=== PATIENT | female | born 1960 | race Caucasian/White ===

== ENCOUNTER → 2017-01-14 | Outpatient (CLI) | payer OTHER ==
[2014-12-27 15:40] VITALS: BP 134/78
[2017-01-14 08:00] LABS: BASOPHILS # (AUTO) 0.1 X10^3/uL (0.0-0.1); BASOPHILS % (AUTO) 0.9 % (0.2-1.0); EOSINOPHILS # (AUTO) 0.1 x10^3/uL (0.0-0.2); EOSINOPHILS % (AUTO) 1.6 % (0.9-2.9); HEMATOCRIT 43.3 % (36.0-47.0); HEMOGLOBIN 15.3 g/dL (12.0-16.0); LYMPHOCYTES # (AUTO) 2.7 X10^3/uL (1.3-2.9); LYMPHOCYTES % (AUTO) 33.6 % (21.0-51.0); MEAN CORPUSCULAR HEMOGLOBIN 32.8 pg (27.0-34.0); MEAN CORPUSCULAR HGB CONC 35.4 g/dL (33.0-35.0); MEAN CORPUSCULAR VOLUME 92.6 fL (80.0-100.0); MONOCYTES # (AUTO) 0.4 x10^3/uL (0.3-0.8); MONOCYTES % (AUTO) 5.1 % (0.0-13.0); NEUTROPHILS # (AUTO) 4.8 x10^3/uL (2.2-4.8); NEUTROPHILS % (AUTO) 58.8 % (42.0-75.0); PLATELET COUNT 279 X10^3/uL (150.0-450.0); RED BLOOD COUNT 4.67 X10^6/uL (3.5-5.4); RED CELL DISTRIBUTION WIDTH 12.5 % (11.6-16.5); WHITE BLOOD COUNT 8.1 X10^3/uL (3.6-10.0)
[2017-01-14 08:09] LABS: ALANINE AMINOTRANSFERASE 35 Units/L (12-78); ALBUMIN 4.1 g/dL (3.4-5.0); ALKALINE PHOSPHATASE 46 Units/L (46-116); ASPARTATE AMINO TRANSFERASE 15 Units/L (15-37); BLOOD UREA NITROGEN 10 mg/dL (7-18); CALCIUM 8.7 mg/dL (8.5-10.1); CARBON DIOXIDE 26.5 mmol/L (21-32); CHLORIDE 105 mmol/L (98-107); CHOL/HDL RATIO 8.2 (0.0-5.0); CHOLESTEROL 352 mg/dL (0-200); COR NA(FOR HYPERGLY) 141 mmol/L (136-145); CREATININE 0.53 mg/dL (0.55-1.02); GLUCOSE 117 mg/dL (65-99); HDL CHOLESTEROL 43 mg/dL (40-60); SODIUM 141 mmol/L (136-145); TOTAL PROTEIN 7.9 g/dL (6.4-8.2); TRIGLYCERIDES 444 mg/dL (0-150); eGFR BLACK RACES > 60 (>60); eGFR NON BLACK RACES > 60 (>60)
--- NOTE | 2017-01-14 10:06 | MRI ---
MRI of lumbar spine without contrast Indication: Lower back pain Comparison:None available Technique: Multiplanar multi-sequence MRI of the lumbar spine was obtained. Sagittal T1, sagittal T 2, and stir weighted images, axial T1, and axial T2 images were obtained. Findings: Lumbar spine demonstrates normal alignment without spondylolisthesis. There is no localizing bone ma rrow signal abnormality within the lumbar spine. There is no significant disc desiccation or disc sp yesika loss. Chronic wedge compression deformity of T12 is noted without marrow edema to suggest acute injury. No prevertebral or paraspinal soft tissue swelling or fluid collection. The conus has a norm al termination. Limited visualization of the abdomen and pelvis demonstrates no acute inflammatory process. At T12-L1: Unremarkable At L1-L2: Unremarkable At L2-3: Mild broad-based disc bulge causes mild spinal canal stenosis without neural foraminal narr owing. At L3-4: broad-based disc bulge with mild facet arthropathy causes moderate spinal canal stenosis wi th mild bilateral foraminal narrowing. At L4-5: broad-based disc bulge with mild facet arthropathy causes moderate spinal canal stenosis w ith moderate bilateral neural foraminal stenosis. There is moderate compression of bilateral lateral recesses and transiting L5 nerve roots. At L5-S1: Unremarkable IMPRESSION: Multilevel discogenic degenerative change and facet arthropathy causing varying degrees of spinal ca nal and neural foraminal stenosis as described above. Reported By:
--- NOTE | 2017-01-14 10:07 | MRI ---
MRI SPINE CERVICAL WITHOUT CONTRAST CLINICAL HISTORY: 56-year-old female with chronic neck pain. No myelopathic or radiculopathic sympto ms. COMPARISON: MR cervical spine November 02, 2010. Technique: Multiplanar, multisequence MRI images of the cervical spine were obtained prior to and f ollowing the uneventful intravenous administration of contrast. FINDINGS: There is a normal cervical lordosis. Alignment is maintained. The craniocervical junction is normal. Vertebral body and disc space height are maintained. Vertebral marrow and intervertebral disc space signal are normal. Cord signal is normal. The visualized posterior fossa structures are normal. C2-C3: Central disk osteophyte without significant canal narrowing or cord impingement. No neural fo raminal stenosis. C3-C4: Shallow central disc osteophyte without significant canal narrowing or cord impingement. No n eural foraminal stenosis. C4-C5: Broad-based disk osteophyte without significant central canal narrowing or cord impingement. No neural foraminal stenosis. C5-C6: Broad-based disk osteophyte without significant central canal narrowing or neural foraminal s tenosis. C6-C7: No significant change in broad-based disc osteophyte complex with a shallow central component that produces some mild flattening of the ventral cord without cord signal change. No neural forami nal stenosis. C7-T1: No central canal or neural foraminal stenosis. IMPRESSION: 1. Mild multilevel degenerative change of the cervical spine most pronounced at C6-C7 with subtle fl attening of the ventral cord without cord signal change, stable in the comparison interval. 2. See level by level descriptions above. Reported By:
== END ==
LOC: RAD 07:22
PROVIDERS: ATTEND Nurse Practitioner Family
DX: M47.812 Spondylosis without myelopathy or radiculopathy, cervical region (principal); M54.16 Radiculopathy, lumbar region; M85.9 Disorder of bone density and structure, unspecified; E78.4 Other hyperlipidemia; I10 Essential (primary) hypertension; M79.604 Pain in right leg
CPT/HCPCS: 36415; 72141; 72148; 80053; 80061; 82306; 82330; 83970; 85025; 95909

== ENCOUNTER → 2017-02-28 | Outpatient (CLI) | payer OTHER ==
[2014-12-27 15:40] VITALS: BP 134/78
[2017-02-28 20:49] LABS: BASOPHILS % (AUTO) 0.2 % (0.2-1.0); EOSINOPHILS # (AUTO) 0.3 x10^3/uL (0.0-0.2); EOSINOPHILS % (AUTO) 3.4 % (0.9-2.9); HEMATOCRIT 37.6 % (36.0-47.0); HEMOGLOBIN 12.9 g/dL (12.0-16.0); LYMPHOCYTES % (AUTO) 50.9 % (21.0-51.0); MEAN CORPUSCULAR HEMOGLOBIN 33.2 pg (27.0-34.0); MEAN CORPUSCULAR HGB CONC 34.3 g/dL (33.0-35.0); MEAN CORPUSCULAR VOLUME 96.8 fL (80.0-100.0); MEAN PLATELET VOLUME 8.1 fL (7.4-11.0); MONOCYTES # (AUTO) 0.5 x10^3/uL (0.3-0.8); MONOCYTES % (AUTO) 6.2 % (0.0-13.0); NEUTROPHILS # (AUTO) 3.1 x10^3/uL (2.2-4.8); NEUTROPHILS % (AUTO) 39.3 % (42.0-75.0); PLATELET COUNT 258 X10^3/uL (150.0-450.0); RED BLOOD COUNT 3.88 X10^6/uL (3.5-5.4); RED CELL DISTRIBUTION WIDTH 12.9 % (11.6-16.5); WHITE BLOOD COUNT 7.9 X10^3/uL (3.6-10.0)
[2017-02-28 21:07] LABS: BLOOD UREA NITROGEN 9 mg/dL (7-18); CALCIUM 8.9 mg/dL (8.5-10.1); CARBON DIOXIDE 32.1 mmol/L (21-32); CHLORIDE 103 mmol/L (98-107); CREATININE 0.75 mg/dL (0.55-1.02); GLUCOSE 92 mg/dL (65-99); SODIUM 141 mmol/L (136-145); TSH (3RD GENERATION) 0.888 uIU/mL (0.358-3.74); eGFR BLACK RACES > 60 (>60); eGFR NON BLACK RACES > 60 (>60)
== END ==
LOC: LAB 19:25
PROVIDERS: ATTEND Nurse Practitioner Family
DX: R22.1 Localized swelling, mass and lump, neck (principal); J02.0 Streptococcal pharyngitis; Z79.899 Other long term (current) drug therapy
CPT/HCPCS: 36415; 80048; 84436; 84443; 85025; 86140

== ENCOUNTER → 2017-04-04 | Outpatient (CLI) | payer OTHER ==
[2014-12-27 15:40] VITALS: BP 134/78
[2017-04-04 11:04] LABS: BASOPHILS # (AUTO) 0.1 X10^3/uL (0.0-0.1); BASOPHILS % (AUTO) 0.5 % (0.2-1.0); EOSINOPHILS # (AUTO) 0.3 x10^3/uL (0.0-0.2); EOSINOPHILS % (AUTO) 2.7 % (0.9-2.9); HEMOGLOBIN 14.2 g/dL (12.0-16.0); LYMPHOCYTES # (AUTO) 4.3 X10^3/uL (1.3-2.9); MEAN CORPUSCULAR HEMOGLOBIN 33.3 pg (27.0-34.0); MEAN CORPUSCULAR HGB CONC 35.6 g/dL (33.0-35.0); MEAN CORPUSCULAR VOLUME 93.7 fL (80.0-100.0); MEAN PLATELET VOLUME 7.6 fL (7.4-11.0); MONOCYTES # (AUTO) 0.5 x10^3/uL (0.3-0.8); MONOCYTES % (AUTO) 5.1 % (0.0-13.0); NEUTROPHILS # (AUTO) 4.5 x10^3/uL (2.2-4.8); NEUTROPHILS % (AUTO) 46.7 % (42.0-75.0); PLATELET COUNT 266 X10^3/uL (150.0-450.0); RED BLOOD COUNT 4.27 X10^6/uL (3.5-5.4); RED CELL DISTRIBUTION WIDTH 12.6 % (11.6-16.5); WHITE BLOOD COUNT 9.6 X10^3/uL (3.6-10.0)
== END ==
LOC: LAB 10:08
PROVIDERS: ATTEND Nurse Practitioner Family
DX: R22.1 Localized swelling, mass and lump, neck (principal); Z79.899 Other long term (current) drug therapy
CPT/HCPCS: 36415; 85025; 86140

== ENCOUNTER → 2017-04-08 | Outpatient (CLI) | payer OTHER ==
[2014-12-27 15:40] VITALS: BP 134/78
[~2017-04-08] MED LIST: NS 100 ML IV 100 ML IV ONE
[2017-04-08 09:16] LABS: CREATININE 0.63 mg/dL (0.55-1.02)
--- NOTE | 2017-04-08 17:03 | CT ---
STUDY: CT HEAD WITHOUT AND WITH CONTRAST HISTORY: Palpable mass in left neck. Right pulmonary nodule. Headache. Difficulty swallowing for 2 mo nths. COMPARISON: None. TECHNIQUE: Multiple axial images of the head were obtained from the skull base to the vertex without and with administration of IV contrast. Findings: Pre contrast head: The sulci, cisterns and ventricles are age appropriate. There are confluent and sc attered foci of low attenuation in the periventricular and subcortical white matter of both hemispher es. This is a nonspecific finding which likely represents microangiopathic change in a patient of thi s age. There is no evidence of acute territorial infarction, hemorrhage, mass, mass effect or midline shift. There are no abnormal extra-axial fluid collections. There is no evidence of acute osseous abnormali ty or significant soft tissue swelling. Post-contrast head: Following the uneventful administration of intravenous contrast, there is no evid ence of abnormal brain parenchymal or leptomeningeal enhancement. IMPRESSION: 1. No evidence of acute intracranial abnormality. 2. Nonspecific white matter change and volume loss as described. 3. If there remains strong clinical concern for acute intracranial abnormality, then an MRI examinati on should be considered for further evaluation. Reported By:
--- NOTE | 2017-04-09 17:36 | CT ---
CT chest with contrast Indication: Pulmonary nodule Technique: Helical CT images of the chest were obtained with IV contrast. Reformatted images in the c oronal and sagittal planes were also generated for review. Comparison: Chest CT 02/07/2016 Findings: There is no mediastinal or hilar lymphadenopathy. Heart size is normal without pericardial effusion. The thoracic aorta, great vessels and central airways are normal. There is a stable 5 mm no dule within the right middle lobe (axial image 33). The remainder of the lungs are clear without foca l consolidation or new nodule/mass. No pleural effusion pneumothorax is seen. Limited images of the upper abdomen demonstrate a partially visualized small focus of enhancement wit hin the inferior right hepatic lobe (image 68, series 4). No aggressive osseous lesions are identifie d. Impression: 5 mm right middle lobe nodule is unchanged dating back to October,, suggesting benignity. No furth er follow-up is recommended. Small, partially visualized focus of enhancement within the inferior right hepatic lobe is indetermin ate. Further characterization/evaluation with nonemergent ultrasound is recommended, if clinically wa rranted. Reported By:
--- NOTE | 2017-04-10 10:57 | CT ---
Indication: Left neck mass and difficulty swallowing. Exam: CT neck with contrast. Comparison: 09/07/2011. Technique: Axial spiral images were obtained from the base of the skull through the clavicles after b olus administration of IV contrast with coronal and sagittal multiplanar reconstructions. Findings: The visualized intracranial orbital contents are unremarkable. The nasopharynx is unremarka ble. The parotid and submandibular glands are normal size and density. There are some small lymph nod es scattered along the internal jugular chains bilaterally along the upper neck which measure up to 1 cm bilaterally . These measured 1.5 cm previously . There is mild enlargement of the lingular tonsil s which is less prominent. The nasopharynx is unremarkable. No parapharyngeal mass is seen. The epigl ottis and glottis are unremarkable. The subglottic airway is unremarkable. The thyroid gland is unrem arkable. The lung apices are clear. There is no supraclavicular mass or adenopathy. Degenerative torres ges are seen throughout the spine with no aggressive osseous lesion. The prevertebral soft tissues ar e normal. Impression: Borderline enlarged lymph nodes along the upper neck which have decreased in size with no neck mass i dentified. Recommend clinical follow-up. Mildly enlarged lingular tonsils which have decreased in size with no mass seen. Reported By:
== END ==
LOC: RAD 08:48
PROVIDERS: ATTEND Nurse Practitioner Family
DX: R91.1 Solitary pulmonary nodule (principal); R22.1 Localized swelling, mass and lump, neck
CPT/HCPCS: 36415; 70470; 70491; 71260; 82565; 84520; A4222

== ENCOUNTER → 2017-11-19 | Outpatient (CLI) | payer OTHER ==
[2014-12-27 15:40] VITALS: BP 134/78
--- NOTE | 2017-11-19 15:33 | MG ---
HISTORY: Right axillary lump with intermittent pain Bilateral digital diagnostic mammography with CAD and right breast ultrasound. Comparison: November 28, 2015, August 06, 2014, and April 30, 2013 FINDINGS: Mammogram: Bilateral CC and MLO projections of the right and left breast were obtained. A spot compr ession MLO view of the right axilla was also obtained. Scattered fibroglandular tissue is seen to be present without significant interval change. No suspicious architectural distortion, mass or cluster ed microcalcifications can be observed to suggest malignancy. No skin thickening or nipple retractio n is appreciated. No pathological lymphadenopathy can be identified. Benign-appearing bilateral axi llary lymph nodes are noted. Benign-appearing calcifications are noted within the right and left [address]. Ultrasound: Multiple grayscale and color Doppler images of the right axilla were obtained. There are no suspicious cystic or solid nodules. No focal fluid collections are identified. There is no patholo gic lymphadenopathy. Benign-appearing axillary lymph nodes are noted. IMPRESSION: NO RADIOGRAPHIC EVIDENCE OF MALIGNANCY. ACR CATEGORY 2 - benign findings. FOLLOW-UP EXAM 1 YEAR. Diagnostic CAD was utilized and reviewed. * 0 (ZERO) - ASSESSMENT INCOMPLETE; ADDITIONAL IMAGING IS NEEDED. * 1/ (ONE) - NEGATIVE. * 2/II (TWO) - BENIGN FINDINGS. * 3/III (THREE) - PROBABLY BENIGN FINDING; SHORT INTERVAL FOLLOW-UP SUGGESTED. * 4/IV (FOUR) - SUSPICIOUS ABNORMALITY; BIOPSY SHOULD BE CONSIDERED. * 5/V - HIGHLY SUSPICIOUS OF MALIGNANCY; BIOPSY SHOULD BE PERFORMED. A NEGATIVE X-RAY REPORT SHOULD NOT DELAY BIOPSY IF A DOMINANT OR CLINICALLY SUSPICIOUS MASS IS PRESENT; 4 TO 8 PERCENT OF CANCERS ARE NOT IDENTIFIED BY X-RAY. A NEGA TIVE REPORT MAY REINFORCE THE CLINICAL IMPRESSION. ADENOSIS AND DENSE BREASTS MAY OBSCURE AN UNDERLY ING NEOPLASM. Reported By:
== END ==
LOC: RAD 12:36
PROVIDERS: ATTEND Psychiatry & Neurology Neurology
DX: R22.31 Localized swelling, mass and lump, right upper limb (principal); R93.8 Abnormal findings on diagnostic imaging of other specified body structures
CPT/HCPCS: 76642; 77066

== ENCOUNTER 2017-11-21 17:14 | Emergency (ER) | payer OTHER ==
[2017-11-21 17:19] VITALS: BP 136/77; BMI 25.4
--- NOTE | 2017-11-21 18:10 | DR.EXTPAIN ---
HPI - Time seen Time seen: 17:54 - PCP Primary Care Physician: yanira laureano - Complaint/Symptoms Chief Complaint Doctor Comments: Patient admits to swelling of left side of jaw and cervical spine for one year. She was referred to the ED for evaluation. She had lumpectomy from throat May 2017. She denies fever, vomiting, dysphagia or dyspnea. She is a one ppd cigarette smoker. Chief Complaint:: pt stated he neck has been sweeling for about a year but today the swelling is bigger and it hurts now. her family arnoldo wanted her to come to the er for a neck scan - Source History Provided: Patient - Mode of arrival Mode of Arrival: Ambulatory - Timing Onset of Chief Complaint: 11/05/16 PMH - PMH Past Medical History: Yes Past Medical History: Anxiety, Dyslipidemia, Hypertension Past Surgical History: Yes Surgical History: Hysterectomy, Ortho Surgery - Family History History of Family Medical Conditions: No - Social History Does patient currently use any type of tobacco product: Yes Have you used tobacco products in the last 12 months: Yes Type of Tobacco Use: Cigarettes How many years tobacco product used: 20 Does any household member use tobacco: No Alcohol Use: Occasionally Do you use any recreational Drugs:: No Lives With: Family Lives Where: Home - infectious screening In the last 2 months have you had wt loss of >10#?: NO Have you had fever, night sweats or hemotysis?: No Have you traveled outside the country in the last 6 months?: No Isolation: Standard ROS - Review of Systems Eyes: No Symptoms Reported ENTM: No Symptoms Reported Respiratoy: No Symptoms Reported Cardiovascular: No Symptoms Reported Gastrointestinal/Abdominal: No Symptoms Reported Genitourinary: No Symptoms Reported Neurological: No Symptoms Reported Musculoskeletal: No Symptoms Reported Integumentary: No Symptoms Reported Hematologic/Lymphatic: No Symptoms Reported Endocrine: No Symptoms Reported Psychiatric: No Symptoms Reported All Other Systems: Reviewed and Negative PE - Vital Signs Vitals: Temperature 98.6 F Pulse Rate 83 Respiratory Rate 16 Blood Pressure 136/77 O2 Sat by Pulse Oximetry 98 - General Limitations: No Limitations General Appearance: Alert, In No Apparent Distress - Head Head Exam: Normal Inspection, Atraumatic - Eyes Eye exam: Normal Appearance, PERRL, EOMI - ENT ENT Exam: Normal Exam - Neck Neck Exam: Normal Inspection - Chest Chest Inspection: Normal Inspection - Respiratory Respiratory Exam: Accessory Muscle Use Respiratory Exam: Bilateral Clear to Auscultation - Cardiovascular Cardiovascular Exam: Regular Rate, Normal Rhythm - Abdominal Exam Abdominal Exam: Normal Inspection, Normal Bowel Sounds Abdominal Tenderness: negative: RUQ, RLQ, LUQ, LLQ, Epigastrium, Suprapubic, Diffuse, Mild, Moderate, Severe, Other - Extremities Extremities Exam: Normal Inspection, Full ROM - Upper Extremities Shoulder Exam: Normal Inspection, Full ROM Arm Exam: Normal Inspection, Full ROM Elbow Exam: Normal Inspection Forearm Exam: Normal Inspection, Full ROM Hand Exam: Normal Inspection Neuromotor Exam: Normal Exam Neurosensory Exam: Normal Exam Hand Tendon Exam: Flexor Digitorium Profundus (Location) Upper Ext. Vascular Exam: Capillary Refill, Radial Pulse - Lower Extremities Hip/Pelvis Exam: Normal Inspection, Full ROM Upper Leg Exam: Normal Inspection, Full ROM Knee Exam: Normal Inspection, Full ROM Lower Leg Exam: Normal Inspection Ankle Exam: Normal Inspection Foot/Toe Exam: Normal Inspection, Full ROM Neurovascular/Tendon Exam: Normal Capillary Refill Gait Exam: Observed and Normal - Back Back Exam: Normal Inspection - Neurological Neurological Exam: Alert, Oriented X3, CN II-XII Intact - Psychiatric Psychiatric Exam: Normal Affect - Skin Skin Exam: Warm, Dry, Intact Type of Lesion: Other (lipoma) Distribution: Neck (swelling superior left) Course - Reevaluation 1st: Unchanged - Education/Counseling Educated On: Treatment, Diagnosis ROR - XRAY XRAY Interpreted by: Radiologist (CT Cervical spine (Neck swelling): Alignment of the cervical spine is maintained. No evidence fort acute cortical disruption or subluxation can be seen. The posterior elements appear unremarkable. The prevertebral soft tissues are normal in their appearance. In addition, the surrounding paraspinous soft tissues are unremarkable. There is mild spondylosis at C4-C%, and C6-C7. Impression: No evidence for traumatic injury of cervical spiine. No prevertebral soft tissue swelling identified within the neck.) - Diagnosis Discharge Problem: Soft tissue swelling cervical spine - Discharge Plan Condition: Stable - Follow ups/Referrals Follow ups/Referrals: KIM LAUREANO [Primary Care Provider] - 3 days - Instructions
--- NOTE | 2017-11-21 18:43 | CT ---
CT cervical spine without contrast Indication: Neck swelling Comparison: None available Technique: Multiple axial images of the cervical spine were obtained from the skull base to the thora cic inlet without administration of IV contrast. Sagittal and coronal reformats were performed and r eviewed. Findings: Alignment of the cervical spine is maintained. No evidence for acute cortical disruption or subluxat ion can be seen. The posterior elements appear unremarkable. The prevertebral soft tissues are norm al in their appearance. In addition, the surrounding paraspinous soft tissues are unremarkable. There is mild spondylosis at C4-5 and C6-7. IMPRESSION: 1. No evidence for traumatic injury of the cervical spine. No prevertebral soft tissue swelling iden tified within neck. Reported By:
== END 2017-11-21 19:25 | disposition home or self-care (01) ==
LOC: ER 17:24
DX: M79.89 Other specified soft tissue disorders (principal); M54.2 Cervicalgia
CPT/HCPCS: 72125; 99282